=== PATIENT | female | born 1960 | race American Indian/Alaskan Native ===

== ENCOUNTER 2019-05-16 08:56 | Outpatient (CLI) | payer OTHER ==
[2019-05-16 09:50] LABS: Blood Urea Nitrogen 13 mg/dL (7-17)
--- NOTE | 2019-05-16 13:44 | Cat Scan Report ---
CT abdomen pelvis w con INDICATION: Patient complained of a knot on the right side of the abdomen for 2 1/2 weeks. TECHNIQUE: All CT scans at this location are performed using the following dose modulation technique: Automated exposure control. Helical slices were obtained through the abdomen and pelvis following the administr ation of 100 cc of Omnipaque 300 COMPARISON: None available. FINDINGS: Abdomen: Lung bases are clear. The liver, spleen, pancreas, right adrenal gland, and kidneys are unre markable. There is a 2 cm left adrenal nodule which measures approximately 10 Hounsfield units and is likely an adrenal adenoma. There are several fat-containing ventral hernias in the upper abdomen above the level of the umbilicu s. There is a small amount of fluid in one of the hernia sacs on the right. There is no obstruction or free air. Bowel is unremarkable. Pelvis: The appendix is normal in appearance. There is no inflammatory change. There are no abnormal fluid collections. On review of bone windows, no acute osseous abnormalities are seen. IMPRESSION: There are several fat-containing ventral hernias in the upper abdomen one of these contains some flui d. There is a low-density 2 cm left adrenal nodule which is likely an adenoma. Signer Name: Prem Cortez MD Signed: 05/16/2019 1:40 PM Workstation Name: [id number]
== END 2019-05-16 08:57 | disposition home or self-care (01) ==
LOC: CT 08:56
PROVIDERS: ATTEND Family Medicine
DX: K43.9 Ventral hernia without obstruction or gangrene (principal)
CPT/HCPCS: 36415; 74177; 82565; 84520; Q9967